=== PATIENT | female | born 1975 | race Caucasian/White ===

== ENCOUNTER 2017-11-28 06:08 | Day surgery (SDC) | payer OTHER ==
[~2017-11-28] VITALS: Ht 162.6 cm; Wt 127.2 kg
[~2017-11-28 06:08] MED LIST: BIRTH CONTROL; CIPHYDOTSU LEFTEAR; LISHYD1012 PO; RXCLIN PO
[2017-11-28] MEDS ORDERED: TURMERIC COMPL1 EACH PO (06:57)
[2017-11-28] MEDS ORDERED: PROBIOTIC & AC1 EACH (06:58)
== END 2017-11-28 09:32 | disposition home or self-care (01) ==
LOC: ORSCSDS 06:08
PROVIDERS: Obstetrics & Gynecology
PROC: 0UBC7ZX Excision of Cervix, Via Natural or Artificial Opening, Diagnostic (ICD-10-PCS; principal; 2017-11-28 07:30)
DX: D06.9 Carcinoma in situ of cervix, unspecified (principal); R87.820 Cervical low risk human papillomavirus (HPV) DNA test positive; I10 Essential (primary) hypertension; E66.01 Morbid (severe) obesity due to excess calories; Z68.42 Body mass index [BMI] 45.0-49.9, adult; Z79.899 Other long term (current) drug therapy
CPT/HCPCS: 88307; J0171; J0690; J2250; J3010; J7120

== ENCOUNTER 2018-01-23 13:21 | Day surgery (SDC) | payer OTHER ==
[~2018-01-23] VITALS: Ht 162.6 cm; Wt 125.1 kg
[~2018-01-23 13:21] MED LIST changes: +PROBIOTIC & AC1 EACH; +TURMERIC COMPL1 EACH PO
== END 2018-01-23 16:45 | disposition home or self-care (01) ==
LOC: ORSCSDS 13:21
PROVIDERS: Obstetrics & Gynecology
PROC: 0UBC7ZX Excision of Cervix, Via Natural or Artificial Opening, Diagnostic (ICD-10-PCS; principal; 2018-01-23 14:30)
DX: R87.613 High grade squamous intraepithelial lesion on cytologic smear of cervix (HGSIL) (principal); I10 Essential (primary) hypertension; E66.01 Morbid (severe) obesity due to excess calories; Z68.42 Body mass index [BMI] 45.0-49.9, adult; Z79.899 Other long term (current) drug therapy
CPT/HCPCS: 88307; 88342; J0690; J1100; J1885; J2405; J3010; J7120

== ENCOUNTER → 2018-10-28 | Outpatient (CLI) | payer OTHER ==
[2018-11-04 11:54] LABS: HPV 16 Negative (Negative); HPV 18 Negative (Negative); HPV OTHER HR TYPES Negative (Negative)
== END ==
LOC: LAB SHORT 12:05 → LAB 12:05
PROVIDERS: Registered Nurse Community Health
DX: Z12.4 Encounter for screening for malignant neoplasm of cervix (principal)
CPT/HCPCS: 87625; G0123

== ENCOUNTER 2022-04-16 07:09 | Day surgery (SDC) | payer OTHER ==
[~2022-04-16] VITALS: Ht 160 cm; Wt 125.7 kg
[~2022-04-16 07:09] MED LIST changes: +ESTROVEN CMPLT M4 MG PO; +METF500 PO; -TURMERIC COMPL1 EACH PO; +TURMERIC500 M2 PO
--- NOTE | 2022-04-16 07:44 | NUR ---
Ambulatory in Day Surgery History, Chart, Medications and Allergies reviewed before start of procedure. Lungs clear T/O to Auscultation. Pre-Op teaching done. Pt verbalizes understanding. Patient States Post-Procedure ride home has been arranged.
--- NOTE | 2022-04-16 08:30 | NUR ---
04/16/22 0830 Martha Lozada HISTORY, CHART, MEDICATIONS AND ALLERGIES REVIEWED BEFORE START OF PROCEDURE. PATIENT CONFIRMS NPO STATUS AND AGREES WITH SCHEDULED PROCEDURE. 3-LEAD EKG REVIEWED WITH PHYSICIAN PRIOR TO START OF PROCEDURE. MONITOR INTACT WITH CONTINUOUS PULSE OXIMETRY,CAPNOGRAPHY, 3-LEAD EKG, INTERMITTENT BP. SUPPLEMENTAL O2 TO BE TITRATED THROUGHOUT PROCEDURE TO MAINTAIN O2 SATURATION ABOVE 90%. PATIENT DETERMINED TO BE ASA APPROPRIATE FOR PROPOFOL SEDATION PRIOR TO START OF PROCEDURE BY DR. ALCALA
== END 2022-04-16 22:40 | disposition home or self-care (01) ==
LOC: ORSCMMR 07:09 → ORD 08:00 → ORSCMMR 08:00
PROVIDERS: Internal Medicine Gastroenterology
PROC: 0DBM8ZX Excision of Descending Colon, Via Natural or Artificial Opening Endoscopic, Diagnostic (ICD-10-PCS; principal; 2022-04-16 08:00)
DX: Z12.11 Encounter for screening for malignant neoplasm of colon (principal); Z80.0 Family history of malignant neoplasm of digestive organs; D12.4 Benign neoplasm of descending colon; K59.09 Other constipation; E66.01 Morbid (severe) obesity due to excess calories; K64.8 Other hemorrhoids; K64.4 Residual hemorrhoidal skin tags; E11.9 Type 2 diabetes mellitus without complications; I10 Essential (primary) hypertension; Z68.42 Body mass index [BMI] 45.0-49.9, adult; Z79.84 Long term (current) use of oral hypoglycemic drugs; Z79.899 Other long term (current) drug therapy
CPT/HCPCS: 82947; 88305; A9270; J2250; J3010; J7120